=== PATIENT | male | born 1990 | race Caucasian/White ===

== ENCOUNTER 2017-12-30 15:05 | Emergency (ER) | payer SELFPAY ==
[2017-12-30] MEDS ORDERED: LIDOCAINE 1% MPF 5 ML VIAL ONE (16:35)
--- NOTE | 2017-12-30 16:51 | ER ---
Nurse's Notes [facility] Name: Burt Fleming Age: 27 yrs Sex: Male : 1990 Arrival Date: 12/30/2017 Time: 15:09 Bed 10 Private MD: None, None Diagnosis: Sebaceous cyst-infected Presentation: 12/30 15:45 Presenting complaint: Patient states: "Thursday I thought I had a pimple on my back, aj1 but it kept getting bigger and bigger. It hurts a lot." Patient reports fever at home for the past couple days. Abscess noted to mid back. Transition of care: patient was not received from another setting of care. Onset of symptoms was December 2017. Risk Assessment: Do you want to hurt yourself or someone else? Patient reports no desire to harm self or others. Initial Sepsis Screen: Does the patient meet any 2 criteria? No. Patient's initial sepsis screen is negative. Does the patient have a suspected source of infection? Yes: Skin breakdown/wound. Care prior to arrival: None. 15:45 Method Of Arrival: [place] [facility] [place] 15:45 Acuity: LAURENCE 4 aj1 Triage Assessment: 15:48 General: Appears in no apparent distress. comfortable, Behavior is calm, cooperative, aj1 appropriate for age. Pain: Complains of pain in back Pain currently is 7 out of 10 on a pain scale. Neuro: Level of Consciousness is awake, alert, obeys commands. Cardiovascular: Patient's skin is warm and dry. Respiratory: Airway is patent Respiratory effort is even, unlabored, Respiratory pattern is regular, symmetrical. Historical: - Allergies: 15:48 No Known Allergies; aj1 - Home Meds: 15:48 None [Active]; aj1 - PMHx: 15:48 None; aj1 - PSHx: 15:48 eye surgery; aj1 - Immunization history:: Flu vaccine is not up to date. - Social history:: Smoking status: Patient/guardian denies using tobacco. - Ebola Screening: : Patient denies travel to an Ebola-affected area in the 21 days before illness onset. Screenin:50 Abuse screen: Denies threats or abuse. Denies injuries from another. Nutritional ss screening: No deficits noted. Tuberculosis screening: No symptoms or risk factors identified. Never had TB. Fall Risk None identified. Assessment: 16:25 General: Appears in no apparent distress. comfortable, Behavior is calm, cooperative. ss Pain: Complains of pain in thoracic area Pain currently is 7 out of 10 on a pain scale. Quality of pain is described as tender. Neuro: Level of Consciousness is awake, alert, obeys commands, Oriented to person, place, time, situation. Cardiovascular: Capillary refill < 3 seconds is brisk in bilateral fingers Patient's skin is warm and dry. Respiratory: Airway is patent Respiratory effort is even, unlabored, Respiratory pattern is regular, symmetrical. EENT: Oral mucosa is moist. Derm: Skin is intact, is healthy with good turgor, Skin is dry, Skin is pink, warm \\T\\ dry. normal. Derm: Abscess located on thoracic area is quarter sized. Musculoskeletal: Range of motion: intact in all extremities. Vital Signs: 15:48 BP 145 / 88; Pulse 92; Resp 18; Temp 98.0; Pulse Ox 98% on R/A; Weight 83.91 kg (R); aj1 Height 5 ft. 7 in. (170.18 cm) (R); Pain 7/10; 15:48 Body Mass Index 28.97 (83.91 kg, 170.18 cm) aj1 ED Course: 15:09 Patient arrived in ED. mr 15:09 None, None is Private Physician. mr 15:48 Triage completed. aj1 15:48 Arm band placed on Patient placed in waiting room, Patient notified of wait time. aj1 16:08 Marianna Sierra FNP-C [facility]. snw 16:08 Jadon Patton MD is Attending Physician. snw 16:47 Ara Curiel RN is Primary Nurse. ss 16:50 Patient has correct armband on for positive identification. Bed in low position. Call ss light in reach. Side rails up X 1. 16:56 Assist provider with I \\T\\ D: of an abscess on back Performed by Marianna SIMPSON Wound packed. iodoform gauze, Patient tolerated well. Patient did not have IV access during this emergency room visit. Administered Medications: 16:35 Drug: Lidocaine (1 %) 5 mg {Note: administered by Marianna Sierra NP.} Route: ss Infiltration; 16:48 Drug: Hibiclens 4 % 1 application Route: Topical; Site: affected area; ss 16:55 Not Given (pt is driving home, verbalizes understanding): [place] 5 mg-325 mg 1 tabs PO ss once 16:55 Drug: Tetanus-Diphtheria Toxoid Adult 0.5 ml {Claim Investigator: [employer]. Exp: ss 01/28/2020. Lot #: [id number]. } Route: IM; Site: left deltoid; 17:08 Follow up: Response: No adverse reaction ss 16:56 Drug: Clindamycin 300 mg Route: PO; ss 17:07 Follow up: Response: No adverse reaction ss Outcome: 16:51 Discharge ordered by . brooke 17:08 Discharged to home ambulatory. ss 17:08 Condition: good 17:08 Discharge instructions given to patient, family, Instructed on discharge instructions, follow up and referral plans. medication usage, Demonstrated understanding of instructions, follow-up care, medications, Prescriptions given X 2. 17:09 Patient left the ED. Signatures: Lea Vela RN RN aj1 Marianna Sierra, SCIENTIFIC PROCESS OPERATOR-C SCIENTIFIC PROCESS OPERATOR-Lida Paz [place], LEONCIO FANG
--- NOTE | 2017-12-30 16:51 | EDPHYS ---
Physician Documentation [facility] Name: Burt Fleming Age: 27 yrs Sex: Male : 1990 Arrival Date: 12/30/2017 Time: 15:09 Bed 10 Private MD: None, None ED Physician Jadon Patton HPI: 12/30 16:49 This 27 yrs old Male presents to ER via Ambulatory with complaints of Abscess.snw 16:49 The patient presents with an abscess of the thoracic area. Description: The affected snw area is moderate sized, localized, erythematous, raised, swollen. Onset: The symptoms/episode began/occurred suddenly, 4 day(s) ago, and became persistent. Associated signs and symptoms: Pertinent positives: erythema, swelling. Severity of symptoms: At their worst the symptoms were moderate. The patient has experienced a previous episode. The patient has not recently seen a physician. Historical: - Allergies: 15:48 No Known Allergies; aj1 - Home Meds: 15:48 None [Active]; aj1 - PMHx: 15:48 None; aj1 - PSHx: 15:48 eye surgery; aj1 - Immunization history:: Flu vaccine is not up to date. - Social history:: Smoking status: Patient/guardian denies using tobacco. - Ebola Screening: : Patient denies travel to an Ebola-affected area in the 21 days before illness onset. ROS: 16:48 Constitutional: Negative for fever, chills, and weight loss, Eyes: Negative for injury, snw pain, redness, and discharge, ENT: Negative for injury, pain, and discharge, Neck: Negative for injury, pain, and swelling, Cardiovascular: Negative for chest pain, palpitations, and edema, Respiratory: Negative for shortness of breath, cough, wheezing, and pleuritic chest pain, Abdomen/GI: Negative for abdominal pain, nausea, vomiting, diarrhea, and constipation, Back: Negative for injury and pain, : Negative for injury, bleeding, discharge, and swelling, MS/Extremity: Negative for injury and deformity, Neuro: Negative for headache, weakness, numbness, tingling, and seizure, Psych: Negative for depression, anxiety, suicide ideation, homicidal ideation, and hallucinations. 16:48 MS/extremity: Positive for erythema, pain, swelling, of the thoracic area. Exam: 16:48 Constitutional: This is a well developed, well nourished patient who is awake, alert, snw and in no acute distress. Head/Face: Normocephalic, atraumatic. Eyes: Pupils equal round and reactive to light, extra-ocular motions intact. Lids and lashes normal. Conjunctiva and sclera are non-icteric and not injected. Cornea within normal limits. Periorbital areas with no swelling, redness, or edema. ENT: Nares patent. No nasal discharge, no septal abnormalities noted. Tympanic membranes are normal and external auditory canals are clear. Oropharynx with no redness, swelling, or masses, exudates, or evidence of obstruction, uvula midline. Mucous membranes moist. Neck: Trachea midline, no thyromegaly or masses palpated, and no cervical lymphadenopathy. Supple, full range of motion without nuchal rigidity, or vertebral point tenderness. No Meningismus. Chest/axilla: Normal chest wall appearance and motion. Nontender with no deformity. No lesions are appreciated. Cardiovascular: Regular rate and rhythm with a normal S1 and S2. No gallops, murmurs, or rubs. Normal PMI, no JVD. No pulse deficits. Respiratory: Lungs have equal breath sounds bilaterally, clear to auscultation and percussion. No rales, rhonchi or wheezes noted. No increased work of breathing, no retractions or nasal flaring. Abdomen/GI: Soft, non-tender, with normal bowel sounds. No distension or tympany. No guarding or rebound. No evidence of tenderness throughout. Back: No spinal tenderness. No costovertebral tenderness. Full range of motion. MS/ Extremity: Pulses equal, no cyanosis. Neurovascular intact. Full, normal range of motion. Neuro: Awake and alert, GCS 15, oriented to person, place, time, and situation. Cranial nerves II-XII grossly intact. Motor strength 5/5 in all extremities. Sensory grossly intact. Cerebellar exam normal. Normal gait. Psych: Awake, alert, with orientation to person, place and time. Behavior, mood, and affect are within normal limits. 16:48 Skin: Appearance: normal except for affected area, abscess, that is moderate sized, of the thoracic area, with fluctuance, with induration. Vital Signs: 15:48 BP 145 / 88; Pulse 92; Resp 18; Temp 98.0; Pulse Ox 98% on R/A; Weight 83.91 kg (R); aj1 Height 5 ft. 7 in. (170.18 cm) (R); Pain 7/10; 15:48 Body Mass Index 28.97 (83.91 kg, 170.18 cm) [facility] Procedures: 16:53 I \T\ D: Incision and drainage was performed for an abscess of the thoracic area Prepped snw with hibiclens. Anesthetized with 4 ml's 1% Lidocaine. Incised with #11 blade. Drained large amount cheesy cyst wall and small amt purulent material Loculations removed. Packed with iodoform gauze, Dressing: non-Adherent dressing, the patient tolerated the procedure well. MDM: 16:24 Patient medically screened. [facility] 16:53 Data reviewed: vital signs, nurses notes. Data interpreted: Pulse oximetry: on room air snw is 98 %. Interpretation: normal. Counseling: I had a detailed discussion with the patient and/or guardian regarding: the historical points, exam findings, and any diagnostic results supporting the discharge/admit diagnosis, the presence of at least one elevated blood pressure reading (>120/80) during this emergency department visit, the need for outpatient follow up, to return to the emergency department if symptoms worsen or persist or if there are any questions or concerns that arise at home. Special discussion: I have referred the patient to see his PCP for further evaluation of high blood pressure. I discussed in detail with the patient the higher chance of wound infection based on his presenting history. Based on the history and exam findings, there is no indication for further emergent testing or inpatient evaluation. I discussed with the patient/guardian the need to see the general surgeon for further evaluation of the symptoms. I discussed with the patient/guardian the need to see the primary care provider for further evaluation of the symptoms. 12/30 16:47 Order name: Wound dressing; Complete Time: 16:48 snw Administered Medications: 16:35 Drug: Lidocaine (1 %) 5 mg {Note: administered by Marianna Sierra NP.} Route: ss Infiltration; 16:48 Drug: Hibiclens 4 % 1 application Route: Topical; Site: affected area; ss 16:55 Not Given (pt is driving home, verbalizes understanding): [place] 5 mg-325 mg 1 tabs PO ss once 16:55 Drug: Tetanus-Diphtheria Toxoid Adult 0.5 ml {Director Zone: [employer]. Exp: ss 01/28/2020. Lot #: [id number]. } Route: IM; Site: left deltoid; 17:08 Follow up: Response: No adverse reaction 16:56 Drug: Clindamycin 300 mg Route: PO; ss 17:07 Follow up: Response: No adverse reaction ss Disposition: 12/30/17 16:51 Discharged to Home. Impression: Sebaceous cyst - infected. - Condition is Stable. - Discharge Instructions: VIS, Tetanus, Diphtheria (Td) - CDC, Epidermal Cyst Removal, Care After, Excision of Skin Lesions, Care After. - Prescriptions for Clindamycin HCl 300 mg Oral Capsule - take 1 capsule by ORAL route every 6 hours for 10 days; 40 capsule. Diclofenac Sodium 75 mg Oral Tablet Sustained Release - take 1 tablet by ORAL route 2 times per day; 30 tablet. - Work release form, Medication Reconciliation Form, Thank You Letter, Antibiotic Education, Prescription Opioid Use form. - Follow up: Private Physician; When: 5 - 6 days; Reason: Recheck today's complaints, Continuance of care, Re-evaluation by your physician. Follow up: Emergency Department; When: As needed; Reason: Worsening of condition. Addendum: 01/04/2018 06:23 Co-signature as Attending Physician, Jadon Patton MD I agree with the assessment and c easley plan of care. Signatures: Lea Vela, RN RN aj1 Jadon Patton MD MD cha Therrien, Shelly, QUALITY CONTROL ASSOCIATE-C QUALITY CONTROL ASSOCIATE-Csnw Ara Cuirel RN RN Corrections: (The following items were deleted from the chart) 12/30 17:09 16:51 12/30/2017 16:51 Discharged to Home. Impression: Sebaceous cyst - infected. ss Condition is Stable. Forms are Medication Reconciliation Form, Thank You Letter, Antibiotic Education, Prescription Opioid Use. Follow up: Private Physician; When: 5 - 6 days; Reason: Recheck today's complaints, Continuance of care, Re-evaluation by your physician. Follow up: Emergency Department; When: As needed; Reason: Worsening of condition. snw
[2017-12-30] MEDS ORDERED: HYDROCODONE/APAP 5/325 MG TAB ONE (16:58)
[2017-12-30] MEDS ORDERED: CLINDAMYCIN HCL 150 MG CAP ONE (16:59)
[2017-12-30] MEDS ORDERED: TETANUS & DIPHTHERIA TOX,ADULT 0.5 ML VIAL ONE (16:59)
[2017-12-30 18:12] VITALS: BP 145/88; TEMP 98; O2SAT 98
== END 2017-12-30 17:09 | disposition home or self-care (01) ==
LOC: ER 15:05
PROC: 0J960ZZ Drainage of Chest Subcutaneous Tissue and Fascia, Open Approach (ICD-10-PCS; principal; 2017-12-30)
DX: L72.3 Sebaceous cyst (principal); Z23 Encounter for immunization
CPT/HCPCS: 90714; 99283

== ENCOUNTER 2020-01-16 11:14 | Emergency (ER) | payer SELFPAY ==
[2020-01-16] MEDS ORDERED: LIDOCAINE 1% W/EPI 1:100,000 MDV 20 ML VIAL ONE (11:47)
--- NOTE | 2020-01-16 14:48 | ER ---
Nurse's Notes [facility] Name: Burt Fleming Age: 29 yrs Sex: Male : 1990 Arrival Date: 01/16/2020 Time: 11:17 Bed 4 Private MD: Diagnosis: Sebaceous cyst-Abscess Presentation: 01/15 11:25 Chief complaint: Patient states: has hx of pilonidal cyst for past ten years, comes and iw goes, has been red and swollen since Thursday, it opened up and drained this morning. Coronavirus screen: At this time, the client does not indicate any symptoms associated with coronavirus-19. Ebola Screen: Patient negative for fever greater than or equal to 101.5 degrees Fahrenheit, and additional compatible Ebola Virus Disease symptoms Patient denies exposure to infectious person. Patient denies travel to an Ebola-affected area in the 21 days before illness onset. No symptoms or risks identified at this time. Initial Sepsis Screen: Does the patient meet any 2 criteria? No. Patient's initial sepsis screen is negative. Does the patient have a suspected source of infection? No. Patient's initial sepsis screen is negative. Risk Assessment: Do you want to hurt yourself or someone else? Patient reports no desire to harm self or others. Onset of symptoms was January 14, 2020. 11:25 Method Of Arrival: Ambulatory iw 11:25 Acuity: LAURENCE 4 iw Triage Assessment: 11:25 General: Appears in no apparent distress. uncomfortable, Behavior is calm, cooperative, bp appropriate for age. Pain: Complains of pain in buttocks. EENT: No deficits noted. Neuro: No deficits noted. Cardiovascular: No deficits noted. Respiratory: No deficits noted. GI: No signs and/or symptoms were reported involving the gastrointestinal system. : No signs and/or symptoms were reported regarding the genitourinary system. Derm: Abscess located on buttocks is quarter sized. Musculoskeletal: No deficits noted. Historical: - Allergies: : No Known Allergies; iw - Home Meds: : None [Active]; iw - PMHx: : None; iw - PSHx: 11: None; iw - Immunization history:: Adult Immunizations up to date, Last tetanus immunization: up to date. - Social history:: Smoking status: Patient denies any tobacco usage or history of. - Family history:: not pertinent. - Hospitalizations: : No recent hospitalization is reported. Screenin:25 Abuse screen: Denies threats or abuse. Denies injuries from another. Nutritional bp screening: No deficits noted. Tuberculosis screening: No symptoms or risk factors identified. Fall Risk None identified. Assessment: 11:25 General: SEE TRIAGE NOTE. bp Vital Signs: 11:28 BP 126 / 80; Pulse 73; Resp 16; Temp 98; Pulse Ox 100% ; Weight 83.91 kg; Height 5 ft. bp 7 in. (170.18 cm); Pain 4/10; 11:28 Body Mass Index 28.97 (83.91 kg, 170.18 cm) bp ED Course: 11:17 Patient arrived in ED. ag5 11:23 Anthony Naranjo MD is Attending Physician. rn 11:24 Tommy Parker, LEONCIO is Primary Nurse. bp 11:25 Arm band placed on. bp 11:25 Patient has correct armband on for positive identification. Placed in gown. Bed in low bp position. Call light in reach. Side rails up X2. Adult w/ patient. 11:28 Triage completed. iw 12:29 Raheem Mayen MD is Referral Physician. rn 12:32 No provider procedures requiring assistance completed. Patient did not have IV access jl7 during this emergency room visit. Administered Medications: No medications were administered Outcome: 12:19 Discharge ordered by MD. rn 12:32 Discharged to home ambulatory. jl7 12:32 Condition: stable 12:32 Discharge instructions given to patient, Instructed on discharge instructions, follow up and referral plans. medication usage, Demonstrated understanding of instructions, follow-up care, medications, Prescriptions given X 1. 12:33 Patient left the ED. jl7 Signatures: Joelle Frances, RN Anthony Morales MD MD rn Leal, Jahala, RN RN jlTommy Douglas, Forest Sue RN ag5 Corrections: (The following items were deleted from the chart) 11:36 11:28 Resp 16bpm; 83.91 kg; Height 5 ft. 7 in.; BMI: 28.9; Pain 4/10; iw bp
--- NOTE | 2020-01-16 14:49 | EDPHYS ---
Physician Documentation [facility] Name: Burt Fleming Age: 29 yrs Sex: Male : 1990 Arrival Date: 01/16/2020 Time: 11:17 Bed 4 Private MD: ED Physician Anthony Naranjo HPI: 01/15 11:33 This 29 yrs old Male presents to ER via Ambulatory with complaints of Cyst, rn abscess. 11:33 The patient presents with an abscess of the buttocks, the patient presents with a rn swollen area of the buttocks. Description: erythematous, fluctuant, warm. Onset: The symptoms/episode began/occurred at an unknown time. Possible cause(s): unknown. Associated signs and symptoms: Pertinent positives: drainage, erythema, Pertinent negatives: fever. Modifying factors: the symptoms are alleviated by sitz bath, the symptoms are aggravated by pressure, squeezing the lesion and expressing the contents. Severity of symptoms: At their worst the symptoms were moderate, in the emergency department the symptoms have improved. The patient has experienced similar episodes in the past. The patient has not recently seen a physician. Historical: - Allergies: 11: No Known Allergies; iw - Home Meds: 11: None [Active]; iw - PMHx: : None; iw - PSHx: 11: None; iw - Immunization history:: Adult Immunizations up to date, Last tetanus immunization: up to date. - Social history:: Smoking status: Patient denies any tobacco usage or history of. - Family history:: not pertinent. - Hospitalizations: : No recent hospitalization is reported. ROS: 11:33 Constitutional: Negative for fever, chills, and weight loss, Skin: + swelling and pain rn to left superior gluteal cleft Exam: 11:33 Constitutional: This is a well developed, well nourished patient who is awake, alert, rn and in no acute distress. Skin: Warm, dry, + left superior gluteal cleft with 3 cm fluctuant and warm area with approx 5 cm underlying induration. Vital Signs: 11:28 BP 126 / 80; Pulse 73; Resp 16; Temp 98; Pulse Ox 100% ; Weight 83.91 kg; Height 5 ft. bp 7 in. (170.18 cm); Pain 4/10; 11:28 Body Mass Index 28.97 (83.91 kg, 170.18 cm) bp Procedures: 12:16 I \T\ D: Incision and drainage was performed for an abscess of the pilonidal cyst Prepped rn with Betadine, Anesthetized with 3 ml's 1% Lidocaine w/ Epi. Incised with #11 blade. Drained small amount purulent fluid. serosanguinous fluid. bloody fluid. Packed with iodoform gauze, Dressing: sterile 4x4 gauze, the patient tolerated the procedure well, large globular collection of hair and loculated pus removed from cavity. MDM: 11:23 Patient medically screened. rn 12:16 Differential diagnosis: abscess, cellulitis. Data reviewed: vital signs, nurses notes, rn and as a result, I will discharge patient. Counseling: I had a detailed discussion with the patient and/or guardian regarding: the historical points, exam findings, and any diagnostic results supporting the discharge/admit diagnosis, the need for outpatient follow up, to return to the emergency department if symptoms worsen or persist or if there are any questions or concerns that arise at home. Response to treatment: the patient's symptoms have markedly improved after treatment, and as a result, I will discharge patient. Special discussion: I discussed with the patient/guardian in detail that at this point there is no indication for admission to the hospital. It is understood, however, that if the symptoms persist or worsen the patient needs to return immediately for re-evaluation. Based on the history and exam findings, there is no indication for further emergent testing or inpatient evaluation. I discussed with the patient/guardian the need to see the general surgeon for further evaluation of the symptoms. Administered Medications: No medications were administered Disposition: 01/16/20 12:19 Discharged to Home. Impression: Sebaceous cyst - Abscess. - Condition is Stable. - Discharge Instructions: Skin Abscess, Epidermal Cyst, Incision and Drainage of a Pilonidal Cyst. - Prescriptions for Clindamycin HCl 300 mg Oral Capsule - take 1 capsule by ORAL route every 6 hours for 10 days; 40 capsule. - Medication Reconciliation Form, Thank You Letter, Antibiotic Education, Prescription Opioid Use, Work release form form. - Follow up: Private Physician; When: As needed; Reason: Recheck today's complaints, Re-evaluation by your physician. Follow up: Raheem Mayen MD; When: As needed; Reason: Wound Recheck, Recheck today's complaints, Continuance of care, Re-evaluation by your physician. - Problem is new. - Symptoms have improved. Signatures: Joelle Frances RN RN iw Anthony Naarnjo MD MD rn Leal, Jahala, RN RN jl7 Tommy Parker RN RN bp Corrections: (The following items were deleted from the chart) 12:29 12:19 01/16/2020 12:19 Discharged to Home. Impression: Sebaceous cyst - Abscess. rn Condition is Stable. Forms are Medication Reconciliation Form, Thank You Letter, Antibiotic Education, Prescription Opioid Use. Follow up: Private Physician; When: As needed; Reason: Recheck today's complaints, Re-evaluation by your physician. Problem is new. Symptoms have improved. rn 12:33 12:29 01/16/2020 12:19 Discharged to Home. Impression: Sebaceous cyst - Abscess. jl7 Condition is Stable. Discharge Instructions: Skin Abscess, Epidermal Cyst, Incision and Drainage of a Pilonidal Cyst. Prescriptions for Clindamycin HCl 300 mg Oral Capsule - take 1 capsule by ORAL route every 6 hours for 10 days; 40 capsule. and Forms are Medication Reconciliation Form, Thank You Letter, Antibiotic Education, Prescription Opioid Use. Follow up: Private Physician; When: As needed; Reason: Recheck today's complaints, Re-evaluation by your physician. Follow up: Raheem Mayen; When: As needed; Reason: Wound Recheck, Recheck today's complaints, Continuance of care, Re-evaluation by your physician. Problem is new. Symptoms have improved. rn
[2020-01-19 19:42] VITALS: BP 126/80; TEMP 98; O2SAT 100
== END 2020-01-16 12:33 | disposition home or self-care (01) ==
LOC: ER 11:14
PROC: 0H98XZZ Drainage of Buttock Skin, External Approach (ICD-10-PCS; principal; 2020-01-16)
DX: L05.91 Pilonidal cyst without abscess (principal)
CPT/HCPCS: 99282